=== PATIENT | female | born 1985 | race American Indian/Alaskan Native ===

== ENCOUNTER 2016-12-27 07:19 | Day surgery (SDC) | payer BC ==
[~2016-12-27 07:19] MED LIST: ANCEF/STERILE WATER 2 GM/20 ML IV NR; NACL 0.9% IR ONE
--- NOTE | 2016-12-27 08:21 | Discharge Summary ---
Short Stay Discharge Plan Activity: no restrictions Weight Bearing Status: Full Weight Bearing Diet: regular Wound: remove dressing (72hrs) Follow up with: PRIMARY CAREMD [Primary Care Provider] - 6 Weeks WORK,JA Booker JR, MD [Staff Physician] - 7 Days
--- NOTE | 2016-12-27 08:22 | Short Stay Summary ---
Short Stay Documentation Date of service: 12/27/16 - Allergies and Medications Current Medications: Allergies No Known Allergies Allergy (Verified 12/22/16 12:28) Home Medications Medication Instructions Recorded Confirmed Last Taken Type Multivit-Min/FA/Herbal No.245 1 each PO DAILY 12/21/16 12/21/16 12/16/16 History [Alive Women's Gummy Vitamins] Active Medications Cefazolin Sodium (Ancef/Sterile Water 2 Gm/20 Ml) 2 gm IV PREOP NR Stop: 12/27/16 21:00 - Brief post op/procedure progress note Date of procedure: 12/27/16 Pre-op diagnosis: macromastia Post-op diagnosis: same Procedure: Caden. Breast Reduction Estimated blood loss: 50-100ml Specimen disposition: to lab Condition: stable - Disposition Condition at discharge: Good Disposition: DC-01 TO HOME OR SELFCARE Short Stay Discharge Plan Follow up with: JA SOSA JR, MD [Staff Physician] - 7 Days PRIMARY CARE, [Primary Care Provider] - 6 Weeks
--- NOTE | 2016-12-27 09:57 | Anesthesia Day of Surgery ---
Anesthesia Day of Surgery - Day of Surgery Patient Examined: Yes Patient H&P Reviewed: Yes Patient is NPO: Yes
--- NOTE | 2016-12-27 09:59 | Anesthesia Consultation ---
Anesthesia Consult and Med Hx Date of service: 12/27/16 - Airway Anesthetic Teeth Evaluation: Good ROM Head & Neck: Adequate Mental/Hyoid Distance: Adequate Mallampati Class: Class II Intubation Access Assessment: Probably Good - Pulmonary Exam CTA: Yes - Cardiac Exam Cardiac Exam: RRR - Pre-Operative Health Status ASA Pre-Surgery Classification: ASA2 Proposed Anesthetic Plan: General - Pulmonary Hx Smoking: No Hx Sleep Apnea: No (JONG PRE SCREEN NEGATIVE) - Central Nervous System Hx Back Pain: Yes Hx Psychiatric Problems: No - Other Systems Hx Alcohol Use: No Hx Substance Use: No Hx Cancer: No Hx Obesity: Yes
[2016-12-27] MEDS ORDERED: PEPCID IV NR (11:00)
[2016-12-27] MEDS ORDERED: LACTATED RINGERS 1,000 ML IV SCH ×2 (11:00→15:00)
[2016-12-27] MEDS ORDERED: VERSED IV NR (11:00)
[2016-12-27] MEDS ORDERED: ZOFRAN ONE (11:32)
[2016-12-27] MEDS ORDERED: XYLOCAINE MPF 2% ONE (11:32)
[2016-12-27] MEDS ORDERED: DECADRON ONE ×2 (11:32→12:46)
[2016-12-27] MEDS ORDERED: DILAUDID ONE ×2 (11:33→12:17)
[2016-12-27] MEDS ORDERED: DIPRIVAN 10 MG/ML IV ONE (11:33)
[2016-12-27] MEDS ORDERED: TORADOL ONE (12:46)
[2016-12-27] MEDS ORDERED: NORMODYNE IV ONE (12:47)
[2016-12-27] MEDS ORDERED: DILAUDID IV PRN (14:21)
[2016-12-27] MEDS ORDERED: ZOFRAN IV PRN (14:21)
--- NOTE | 2016-12-27 14:29 | Post Anesthesia Evaluation ---
- Post Anesthesia Evaluation Patient Participated: Yes Airway Patent: Yes Stable Respiratory Function: Yes Nausea/Vomiting: No Temp > 96.8F: Yes Pain Manageable: Yes Adequeate Hydration: Yes Anesthesia Complications: No
[2016-12-27 16:28] VITALS: BP 125/73
--- NOTE | 2016-12-28 00:21 | Operative Report ---
PREOPERATIVE DIAGNOSIS: Macromastia. POSTOPERATIVE DIAGNOSIS: Macromastia. PROCEDURE: Bilateral reduction mammoplasty with NAC amputation. SURGEON: Boby Rice MD METAL FURNITURE ASSEMBLER: Damian Espino CSA. FINDINGS: 1520 g removed from the right breast, 1420 g removed from the left breast. DESCRIPTION OF PROCEDURE: The patient was brought to the operating room and placed on the table in supine position. Following administration of general anesthesia, bilateral breasts were prepped with Betadine solution, draped in a usual sterile manner. A #10 blade scalpel was used to make a circumareolar skin incision followed by de-epithelization of an inferior dermal pedicle. Modified Alvarado pattern skin markings were incised with scalpel, deepened through subcutaneous fat and breast tissue using electrocautery. Skin flaps were raised in standard manner as was fashioning of an inferior central mound pedicle. Breast tissue was resected inclusive of the NACs bilaterally followed by hemostasis using the electrocautery. Closure was performed over 10 mm Gibran drain using interrupted and running subcuticular 2-0 Monocryl sutures. Mastisol, Steri-Strips, and sterile dressings applied. The patient tolerated the procedure well and returned to recovery room in stable condition. JOB# [id number] FTW/ROXANNE
== END 2016-12-27 16:33 | disposition home or self-care (01) ==
LOC: OR 07:19
PROVIDERS: ATTEND Plastic Surgery
DX: D24.2 Benign neoplasm of left breast (principal); E66.9 Obesity, unspecified; Z68.30 Body mass index [BMI] 30.0-30.9, adult; Z83.3 Family history of diabetes mellitus; Z82.49 Family history of ischemic heart disease and other diseases of the circulatory system
CPT/HCPCS: 19318; 81025; 88305; J0690; J1100; J1170; J1885; J2250; J2405; J2704; J7120